=== PATIENT | female | born 1985 | race Caucasian/White ===

== ENCOUNTER 2017-01-22 23:51 | Emergency (ER) | payer MEDICAID | END 2017-01-23 01:00 | disposition left against medical advice (07) | LOC: ER 23:51 | DX: Z53.21 Procedure and treatment not carried out due to patient leaving prior to being seen by health care provider (principal) ==

== ENCOUNTER 2017-02-09 05:41 | Emergency (ER) | payer SELFPAY ==
[2017-02-09 05:55] VITALS: BP 132/68
[2017-02-09] MEDS ORDERED: LORAZEPAM 1 MG TABLET PO ONE (05:59)
--- NOTE | 2017-02-09 06:02 | ER Document Report ---
ED General - General Chief Complaint: Anxiety Stated Complaint: ANXIETY Time Seen by Provider: 02/09/17 05:51 Mode of Arrival: Medic Information source: Patient TRAVEL OUTSIDE OF THE [place] IN LAST 30 DAYS: No - HPI Patient complains to provider of: anxiety Onset: Yesterday Onset/Duration: Gradual Quality of pain: No pain Exacerbated by: Denies Recently seen / treated by doctor: Yes Notes: Patient is a 31-year-old female with history of PTSD and anxiety. Patient does not currently take any anti-anxiety medication. Patient is trying to get herself set up with both primary care along with mental health. Patient presents today with several days of worsening anxiety and panic symptoms. Feels like her "chest is inflamed". No fevers or chills. She does smoke cigarettes. She is not suicidal or homicidal. - Related Data Allergies/Adverse Reactions: No Known Allergies Allergy (Verified 09/20/15 10:51) Past Medical History - General Information source: Patient - Social History Smoking Status: Current Every Day Smoker Family History: None - Past Medical History Cardiac Medical History: Denies: Hx Coronary Artery Disease, Hx Heart Attack, Hx Hypertension Pulmonary Medical History: Denies: Hx Asthma, Hx Bronchitis, Hx COPD, Hx Pneumonia Neurological Medical History: Denies: Hx Cerebrovascular Accident, Hx Seizures GI Medical History: Denies: Hx Hepatitis, Hx Hiatal Hernia, Hx Ulcer Musculoskeltal Medical History: Denies Hx Arthritis Skin Medical History: Denies Hx MRSA Infectious Medical History: Denies: Hx Hepatitis Past Surgical History: Reports: Hx Orthopedic Surgery - Right ankle, Hx Tubal Ligation. Denies: Hx Hysterectomy, Hx Mastectomy, Hx Open Heart Surgery - Immunizations Immunizations up to date: Yes Hx Diphtheria, Pertussis, Tetanus Vaccination: Yes Review of Systems - Review of Systems Neurological/Psychological: Anxiety -: Yes All other systems reviewed and negative Physical Exam - Vital signs Vitals: Temp Pulse Resp BP Pulse Ox 97.3 F 112 H 22 H 132/68 H 99 02/09/17 05:54 02/09/17 05:54 02/09/17 05:54 02/09/17 05:54 02/09/17 05:54 Interpretation: Normal - General General appearance: Appears well, Alert - HEENT Head: Normocephalic, Atraumatic Eyes: Normal Pupils: PERRL - Respiratory Respiratory status: No respiratory distress Chest status: Nontender Breath sounds: Normal Chest palpation: Normal - Cardiovascular Rhythm: Regular Heart sounds: Normal auscultation Murmur: No - Abdominal Inspection: Normal Distension: No distension Bowel sounds: Normal Tenderness: Nontender Organomegaly: No organomegaly - Back Back: Normal, Nontender - Extremities General upper extremity: Normal inspection, Nontender, Normal color, Normal ROM , Normal temperature General lower extremity: Normal inspection, Nontender, Normal color, Normal ROM , Normal temperature, Normal weight bearing. No: Tere's sign - Neurological Neuro grossly intact: Yes Cognition: Normal Orientation: AAOx4 José Miguel Coma Scale Eye Opening: Spontaneous José Miguel Coma Scale Verbal: Oriented Childs Coma Scale Motor: Obeys Commands Childs Coma Scale Total: 15 Speech: Normal Motor strength normal: LUE, RUE, LLE, RLE Sensory: Normal - Psychological Associated symptoms: Anxious. No: Auditory hallucinations, Psychomotor depression, Uncooperative, Visual hallucinations - Skin Skin Temperature: Warm Skin Moisture: Dry Skin Color: Normal Course - Re-evaluation Re-evalutation: 02/09/17 06:01 Patient is being set up at [facility] for her medical care and also reports appointment for mental health care as well. No SI or HI. Will give dose of Ativan for anxiety here along with a prescription for a few pills. Discussed smoking cessation also. No indication for mental health workup at this time. - Vital Signs Vital signs: Temp Pulse Resp BP Pulse Ox 97.3 F 112 H 22 H 132/68 H 99 02/09/17 05:54 02/09/17 05:54 02/09/17 05:54 02/09/17 05:54 02/09/17 05:54 Discharge - Discharge Clinical Impression: Anxiety Condition: Good Disposition: HOME, SELF-CARE Instructions: Anxiety ([facility]) Additional Instructions: Follow-up as scheduled with [facility] and your mental health provider. Return to the emergency department if worse or for any other problems. Prescriptions: Lorazepam [Ativan 1 mg Tablet] 1 mg PO TIDP PRN #12 tab PRN Reason:
== END 2017-02-09 06:10 | disposition home or self-care (01) ==
LOC: ER 05:41
DX: F41.9 Anxiety disorder, unspecified (principal); F17.210 Nicotine dependence, cigarettes, uncomplicated
CPT/HCPCS: 99283

== ENCOUNTER 2018-01-11 01:31 | Emergency (ER) | payer SELFPAY ==
[2018-01-11] MEDS ORDERED: TETRACAINE HCL 0.5% OPH SOLN 4 ML OS ONE (01:44)
[2018-01-11] MEDS ORDERED: PROCHLORPERAZINE EDISYLATE INJ 10 MG/2 ML VIAL IV ONE (01:58)
[2018-01-11] MEDS ORDERED: KETOROLAC TROMETHAMINE INJ/PF 30 MG/1 ML SDV IV ONE (01:58)
[2018-01-11] MEDS ORDERED: NORMAL SALINE 1000 ML 1,000 ML IV ONE (01:58)
--- NOTE | 2018-01-11 01:59 | ER Document Report ---
ED General - General Chief Complaint: Headache Stated Complaint: HEADACHE Time Seen by Provider: 01/11/18 01:43 Notes: Patient is a 32-year-old female with past medical history of migraine headaches who presents with 3 days of a global, throbbing, aching headache. She describes this headache as being relatively gradual in onset and having gotten progressively worse over that time period. She is tried ibuprofen without any relief. Lights, sounds and activity worsen the headache. She has not seen her general doctor regarding these concerns. She notes associated blurring of vision of her right eye as well as right eye pain. She does not wear contacts. No history of trauma to the eye. No history of glaucoma or cataracts. No fever or constitutional symptoms. No altered mental status, weakness or numbness. TRAVEL OUTSIDE OF THE [place] IN LAST 30 DAYS: No - Related Data Allergies/Adverse Reactions: No Known Allergies Allergy (Verified 09/20/15 10:51) Past Medical History - General Information source: Patient - Social History Smoking Status: Never Smoker Frequency of alcohol use: None Drug Abuse: None Lives with: Family Family History: Reviewed & Not Pertinent - Past Medical History Cardiac Medical History: Denies: Hx Coronary Artery Disease, Hx Heart Attack, Hx Hypertension Pulmonary Medical History: Denies: Hx Asthma, Hx Bronchitis, Hx COPD, Hx Pneumonia Neurological Medical History: Denies: Hx Cerebrovascular Accident, Hx Seizures GI Medical History: Denies: Hx Hepatitis, Hx Hiatal Hernia, Hx Ulcer Musculoskeletal Medical History: Denies Hx Arthritis Skin Medical History: Denies Hx MRSA Infectious Medical History: Denies: Hx Hepatitis Past Surgical History: Reports: Hx Orthopedic Surgery - Right ankle, Hx Tubal Ligation. Denies: Hx Hysterectomy, Hx Mastectomy, Hx Open Heart Surgery - Immunizations Immunizations up to date: Yes Hx Diphtheria, Pertussis, Tetanus Vaccination: Yes Review of Systems - Review of Systems Notes: Constitutional: Negative for fever. HENT: Negative for sore throat. Eyes: Positive for right eye discomfort and blurring of vision Cardiovascular: Negative for chest pain. Respiratory: Negative for shortness of breath. Gastrointestinal: Negative for abdominal pain, vomiting or diarrhea. Genitourinary: Negative for dysuria. Musculoskeletal: Negative for back pain. Skin: Negative for rash. Neurological: Positive for headache 10 point ROS negative except as marked above and in HPI. Physical Exam - Vital signs Vitals: Temp Pulse Resp BP Pulse Ox 97.5 F 76 18 115/76 99 01/11/18 01:31 01/11/18 01:31 01/11/18 01:31 01/11/18 01:31 01/11/18 01:31 Interpretation: Normal Notes: PHYSICAL EXAMINATION: GENERAL: Appears moderately uncomfortable but in no acute distress HEAD: Atraumatic, normocephalic. EYES: Pupils equal round and reactive to light, extraocular movements intact, mild scleral injection bilaterally. Ocular pressures are 19 on the right. ENT: nares patent, oropharynx clear without exudates. Moist mucous membranes. NECK: Normal range of motion, supple without lymphadenopathy LUNGS: Breath sounds clear to auscultation bilaterally and equal. No wheezes rales or rhonchi. HEART: Regular rate and rhythm without murmurs ABDOMEN: Soft, nontender, normoactive bowel sounds. No guarding, no rebound. No masses appreciated. EXTREMITIES: Normal range of motion, no pitting or edema. No cyanosis. NEUROLOGICAL: Face symmetric. Tongue protrudes midline. Extraocular motions intact. Pupils are 2 mm and equally reactive. Normal speech, normal gait. 5 out of 5 strength in both the distal and proximal upper and lower extremities bilaterally. Sensation is grossly intact throughout. Finger to nose testing normal. Pronator drift normal. PSYCH: Normal mood, normal affect. SKIN: Warm, Dry, normal turgor, no rashes or lesions noted. Course - Re-evaluation Re-evalutation: 01/11/18 01:58 Patient presents with 3-4 days of a generalized headache more towards the right side that is been getting progressively worse since onset. Appears to be most consistent with tension versus migrainous type headache. Patient was complaining with some associated right eye pain, mild scleral injection although this is bilateral. Ocular pressures 19 on the right. Exam, age, history not consistent with acute angle glaucoma. Headache was not maximal in onset, patient has no focal neurologic deficits, no nuchal rigidity, vital signs within normal limits, no papilledema, and patient is overall well in appearance. Based on clinical history and examination I do not suspect an acute subarachnoid hemorrhage, dural venous sinus thrombosis, acute meningitis, or intercranial mass. Given my low clinical suspicion for any acute life- threatening etiology, I do not feel advanced neuro imaging or laboratory testing is indicated at this time. Will proceed with headache cocktail and reassess. 01/11/18 03:29 Patient has had complete resolution of her headache as well as blurring of vision in her right eye. She feels much better and would like to go home. At this time will discharge with return precautions and follow-up recommendations. Verbal discharge instructions given a the bedside and opportunity for questions given. Medication warnings reviewed. Patient is in agreement with this plan and has verbalized understanding of return precautions and the need for primary care follow-up in the next 24-72 hours. - Vital Signs Vital signs: Temp Pulse Resp BP Pulse Ox 97.5 F 76 18 115/76 99 01/11/18 01:31 01/11/18 01:31 01/11/18 01:31 01/11/18 01:31 01/11/18 01:31 Discharge - Discharge Clinical Impression: Migraine headache Qualifiers: Migraine type: unspecified Status migrainosus presence: with status migrainosus Intractability: not intractable Qualified Code(s): G43.901 - Migraine, unspecified, not intractable, with status migrainosus Condition: Good Disposition: HOME, SELF-CARE Additional Instructions: You were seen today for a migraine headache. Please follow-up with your primary care doctor regarding today's ED visit. Return to emergency department immediately if you develop a headache that gets to its maximum severity within 20 minutes of onset, you pass out, you develop weakness, numbness, changes in your vision, become unable to keep any fluids down for more than 12 hours, or develop a fever greater than 100.4 degrees Fahrenheit. If you develop a similar migraine headache in the future I recommend that you immediately take 600 mg of ibuprofen and 50 mg of Benadryl and go to sleep as quickly as possible. This can often prevent your migraine headache from becoming severe.
[2018-01-11 03:40] VITALS: BP 108/88
== END 2018-01-11 03:25 | disposition home or self-care (01) ==
LOC: ER 01:31
DX: G43.901 Migraine, unspecified, not intractable, with status migrainosus (principal); Z98.51 Tubal ligation status
CPT/HCPCS: 99283; 96361; 96374; 96375; J1885; J0780; J3490

== ENCOUNTER 2019-01-20 15:30 | Emergency (ER) | payer OTHER ==
[2019-01-20] MEDS ORDERED: PROCHLORPERAZINE EDISYLATE INJ 10 MG/2 ML VIAL IV ONE (16:35)
[2019-01-20] MEDS ORDERED: ACETAMINOPHEN 325 MG TABLET PO ONE (16:35)
[2019-01-20] MEDS ORDERED: DIPHENHYDRAMINE HCL 50 MG/ML VIAL IV ONE (16:35)
--- NOTE | 2019-01-20 16:37 | ER Document Report ---
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 Patient complains of headache off and on for the past several weeks that is been persistent over the past week. Patient states that headache pain migrates from the right side now to the left side of her head. Patient also reports she had a nosebleed each day for the past 4 days. Patient does complain of some nausea as well. No fever. Patient states she has a family history of aneurysm and this is what concerned her today. I have greeted and performed a rapid initial assessment of this patient. A comprehensive ED assessment and evaluation of the patient, analysis of test results and completion of the medical decision making process will be conducted by additional ED providers. TRAVEL OUTSIDE OF THE [place] IN LAST 30 DAYS: No - Related Data Allergies/Adverse Reactions: No Known Allergies Allergy (Verified 09/20/15 10:51) Past Medical History - Past Medical History Cardiac Medical History: Denies: Hx Coronary Artery Disease, Hx Heart Attack, Hx Hypertension Pulmonary Medical History: Denies: Hx Asthma, Hx Bronchitis, Hx COPD, Hx Pneumonia Neurological Medical History: Denies: Hx Cerebrovascular Accident, Hx Seizures Renal/ Medical History: Denies: Hx Peritoneal Dialysis GI Medical History: Denies: Hx Hepatitis, Hx Hiatal Hernia, Hx Ulcer Musculoskeltal Medical History: Denies Hx Arthritis Skin Medical History: Denies Hx MRSA Infectious Medical History: Denies: Hx Hepatitis Past Surgical History: Reports: Hx Orthopedic Surgery - Right ankle, Hx Tubal Ligation. Denies: Hx Hysterectomy, Hx Mastectomy, Hx Open Heart Surgery - Immunizations Immunizations up to date: Yes Hx Diphtheria, Pertussis, Tetanus Vaccination: Yes Physical Exam - Vital signs Vitals: Temp Pulse Resp BP Pulse Ox 98.4 F 82 16 132/77 H 100 01/20/19 15:53 01/20/19 15:53 01/20/19 15:53 01/20/19 15:53 01/20/19 15:53 - Neurological Neuro grossly intact: Yes Cognition: Normal José Miguel Coma Scale Eye Opening: Spontaneous José Miguel Coma Scale Verbal: Oriented [place] Coma Scale Motor: Obeys Commands [place] Coma Scale Total: 15 Course - Vital Signs Vital signs: Temp Pulse Resp BP Pulse Ox 98.4 F 82 16 132/77 H 100 01/20/19 15:53 01/20/19 15:53 01/20/19 15:53 01/20/19 15:53 01/20/19 15:53
[2019-01-20 18:18] LABS: ABSOLUTE EOSINOPHILS # (AUTO) 0.1 10^3/uL (0.0-0.6); ABSOLUTE LYMPHOCYTES (AUTO) 1.5 10^3/uL (0.5-4.7); TOTAL CELLS COUNTED % (AUTO) 100 %
[2019-01-20 18:22] LABS: ABSOLUTE MONOCYTES (AUTO) 0.4 10^3/uL (0.1-1.4); ABSOLUTE NEUT (AUTO) 4.2 10^3/uL (1.7-8.2); BASOPHILS % (AUTO) 0.2 % (0-2); EOSINOPHILS % (AUTO) 1.2 % (0-6); HEMATOCRIT 35.8 % (36.0-47.0); HEMOGLOBIN 11.9 g/dL (12.0-15.5); MEAN CORPUSCULAR HEMOGLOBIN 29.1 pg (27.0-33.4); MEAN CORPUSCULAR HGB CONC 33.3 g/dL (32.0-36.0); MEAN CORPUSCULAR VOLUME 88 fl (80-97); MONOCYTES % (AUTO) 6.7 % (3-13); PLATELET COUNT 130 10^3/uL (150-450); RED BLOOD COUNT 4.09 10^6/uL (3.72-5.28); RED CELL DISTRIBUTION WIDTH 15.3 % (11.5-14.0); SEGMENTED NEUTROPHILS % (AUTO) 67.9 % (42-78); WHITE BLOOD COUNT 6.2 10^3/uL (4.0-10.5)
[2019-01-20] MEDS ORDERED: PROCHLORPERAZINE EDISYLATE INJ 10 MG/2 ML VIAL ONE (21:20)
[2019-01-20] MEDS ORDERED: ACETAMINOPHEN 325 MG TABLET ONE (21:21)
[2019-01-20] MEDS ORDERED: DIPHENHYDRAMINE HCL 50 MG/ML VIAL ONE (21:21)
--- NOTE | 2019-01-20 22:24 | ER Document Report ---
ED Headache - General Chief Complaint: Headache Stated Complaint: HEAD PAIN Time Seen by Provider: 01/20/19 16:35 Mode of Arrival: Ambulatory Information source: Patient Notes: 33-year-old female presented to ED with regan from the detention. She states she has had a headache on and off for the past several weeks that is been persistent. She states the migraine radiates down to the left side of her head from the right side. She states she has a history of headaches and usually can take medication or come to the emergency room and get a shot and they clear up. She states she has had nosebleeds off and on for the last 4 days. She states she did have some nausea earlier but no longer has any nausea. She states the headache is gone with the medicine she received by the physician in triage. She states it usually does go away when she gets medication in the emergency room. TRAVEL OUTSIDE OF THE [place] IN LAST 30 DAYS: No - HPI Patient complains to provider of: Headache, "Migraine" Patient reports: Hx chronic headaches Onset: Other - Couple weeks Onset was: Gradual Timing: Gone now Quality of pain: Pressure Severity: None Pain Level: Denies Associated symptoms: Other - States headache is gone now that she got the medication Similar symptoms previously: Yes Recently seen / treated by doctor: No - Related Data Allergies/Adverse Reactions: No Known Allergies Allergy (Verified 09/20/15 10:51) Past Medical History - General Information source: Patient - Social History Smoking Status: Former Smoker Frequency of alcohol use: None Drug Abuse: None Occupation: Presently in detention Lives with: Other - Presently in detention Family History: Reviewed & Not Pertinent Patient has suicidal ideation: No Patient has homicidal ideation: No - Past Medical History Cardiac Medical History: Reports: None Pulmonary Medical History: Reports: None EENT Medical History: Reports: None Neurological Medical History: Reports: Hx Migraine Endocrine Medical History: Reports: None Renal/ Medical History: Reports: None Malignancy Medical History: Reports: None GI Medical History: Reports: None Musculoskeletal Medical History: Reports Hx Musculoskeletal Trauma Skin Medical History: Reports None Psychiatric Medical History: Reports: None Traumatic Medical History: Reports: Hx Fractures - Right ankle, Hx Traumatic Brain Injury Infectious Medical History: Denies: Hx Hepatitis Past Surgical History: Reports: Hx Orthopedic Surgery - Right ankle mass removed from groin, Hx Tubal Ligation - Immunizations Immunizations up to date: Yes Hx Diphtheria, Pertussis, Tetanus Vaccination: Yes Review of Systems - Review of Systems Constitutional: No symptoms reported EENT: No symptoms reported Cardiovascular: No symptoms reported Respiratory: No symptoms reported Gastrointestinal: Nausea Genitourinary: No symptoms reported Female Genitourinary: No symptoms reported Musculoskeletal: No symptoms reported Skin: No symptoms reported Hematologic/Lymphatic: No symptoms reported Neurological/Psychological: Headaches - Headache gone at time of my exam -: Yes All other systems reviewed and negative Physical Exam - Vital signs Vitals: Temp Pulse Resp BP Pulse Ox 98.4 F 82 16 132/77 H 100 01/20/19 15:53 01/20/19 15:53 01/20/19 15:53 01/20/19 15:53 01/20/19 15:53 Interpretation: Normal - General General appearance: Appears well, Alert - HEENT Head: Normocephalic, Atraumatic Eyes: Normal Pupils: PERRL Ears: Normal External canal: Normal Tympanic membrane: Normal Sinus: Normal Nasal: Normal Pharynx: Normal Neck: Normal - Respiratory Respiratory status: No respiratory distress Chest status: Nontender Breath sounds: Normal Chest palpation: Normal - Cardiovascular Rhythm: Regular Heart sounds: Normal auscultation Murmur: No - Abdominal Inspection: Normal Distension: No distension Bowel sounds: Normal Tenderness: Nontender Organomegaly: No organomegaly - Back Back: Normal, Nontender - Extremities General upper extremity: Normal inspection, Nontender, Normal color, Normal ROM, Normal temperature General lower extremity: Normal inspection, Nontender, Normal color, Normal ROM, Normal temperature, Normal weight bearing. 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 Babinski reflex: Normal (flexor plantar) Sensory: Normal Biceps - Reflex grade: 2 = Normal Triceps - Reflex grade: 2 = Normal Brachioradialis - Reflex grade: 2 = Normal Knee - Reflex grade: 2 = Normal Ankle - Reflex grade: 2 = Normal - Psychological Associated symptoms: Normal affect, Normal mood - Skin Skin Temperature: Warm Skin Moisture: Dry Skin Color: Normal Course - Re-evaluation Re-evalutation: 01/21/19 03:11 After performing a Medical Screening Examination, I estimate there is LOW risk for ACUTE GLAUCOMA, TEMPORAL ARTERITIS, MENINGITIS, INCRANIAL HEMORRHAGE, or ISCHEMIC STROKE thus I consider the discharge disposition reasonable. I have reevaluated this patient multiple times and no significant life threatening changes are noted. The patient and I have discussed the diagnosis and risks, and we agree with discharging home with close follow-up with the understanding that symptoms and presentations can change. We also discussed returning to the Emergency Department immediately if new or worsening symptoms occur. We have discussed the symptoms which are most concerning (e.g., changing or worsening symptoms, new numbness or weakness, vomiting, fever) that necessitate immediate return. - Vital Signs Vital signs: Temp Pulse Resp BP Pulse Ox 97.3 F 81 20 109/72 100 01/20/19 21:10 01/20/19 22:28 01/20/19 22:28 01/20/19 22:28 01/20/19 22:28 - Laboratory Result Diagrams: 01/20/19 18:05 Laboratory results interpreted by me: 01/20/19 18:05 Hgb 11.9 L Hct 35.8 L RDW 15.3 H Plt Count 130 L Discharge - Discharge Clinical Impression: Headache Qualifiers: Headache type: unspecified Headache chronicity pattern: acute headache Intractability: not intractable Qualified Code(s): R51 - Headache Condition: Stable Disposition: HOME, SELF-CARE Instructions: Family Physicians / Practices Additional Instructions: HEADACHE: The physician does not feel that the headache you are experiencing has a serious underlying cause. Most headaches are due to emotional stress, with resultant muscle tension (tension headache). Occasionally, headaches are secondary to changes in the blood vessels of the scalp (vascular headache and migraine headache). Sometimes, a headache is the first symptom of another developing illness, such as a viral infection. You have no evidence of stroke, bleeding, meningitis, or other serious cause of your headache. The treatment of headaches varies with the severity and cause of the pain. Not all headaches need pain shots. In fact, there is evidence that using narcotics for headaches may make them worse in the long run. The physician will determine the therapy that's in your best interest. If you develop a fever, if the headache is different from any you've previously experienced, or if the headache progressively worsens, then call your physician at once or go to the emergency room. USE OF DIPHENHYDRAMINE: Diphenhydramine (Benadryl) is an antihistamine and has been recommended to help treat your headache and to prevent side effects of other medications used to treat headaches. The medication can be repeated four times daily. Age Elixir (12.5 mg/tsp) 25 mg pill adult 1-2 tabs Antihistamines may cause drowsiness, especially with the first dose. Do not operate machinery or drive while under the effects of the medication. Do not combine the medication with alcohol, or with any other medication without talking to your doctor. ANTINAUSEA MEDICATION: You have been given a medication to suppress nausea and vomiting. This type of medication can be given as a shot, pill, or suppository. It will usually last for many hours. Pills and shots usually last six to eight hours, suppositories last about 12 hours. For the typical illness, only one or two doses of the medication may be necessary. Mild lightheadedness may occur. This type of medicine can cause drowsiness. Do not drive or operate dangerous machinery while under its influence. Do not mix with alcohol. See your doctor at once if you have muscle spasms or tightness, or uncontrollable motions (particularly of the neck, mouth, or jaw). Persistent v omiting or severe lightheadedness should also be evaluated by the physician. INTRAVENOUS COMPAZINE FOR HEADACHE: You have received therapy for headaches, using intravenous Compazine. This treatment is dramatically successful in relieving the headache in about 50 percent of cases. When it works, it provides a rapid method of eliminating the headache without resorting to narcotics (and the problems associated with them). Most patients still feel fully alert after the Compazine, but others may be slightly drowsy. It's best not to drive or work with machinery for six to eight hours. Do not take alcohol or other medication unless you discuss it with the doctor. If you develop tightness and spasms in your muscles, especially the neck and tongue, you should return. This is a side effect which can be treated. Acetaminophen Acetaminophen may be taken for pain relief or fever control. It's much safer than aspirin, offering a wider range of "safe" dosages. It is safe during . Some brand names are Tylenol, Panadol, Datril, Anacin 3, Tempra, and Liquiprin. Acetaminophen can be repeated every four hours. The following are maximum recommended dosages: WEIGHT Dose Drops Elixir Chewable( 80mg) (LBS.) drprs=droppers tsp=teaspoon 6 40 mg .4 ml (1/2) 6-11 80 mg .8 ml (full) 1/2 tsp 1 tab 12-16 120 mg 1 1/2 drprs 3/4 tsp 1 1/2 tabs 17-23 160 mg 2 drprs 1 tsp 2 tabs 24-30 240 mg 3 drprs 1 1/2 tsp 3 tabs 30-35 320 mg 2 tsp 4 tabs 36-41 360 mg 2 1/4 tsp 4 1/2 tabs 42-47 400 mg 2 1/2 tsp 5 tabs 48-53 480 mg 3 tsp 6 tabs 54-59 520 mg 3 1/4 tsp 6 1/2 tabs 60-64 560 mg 3 1/2 tsp 7 tabs 65-70 600 mg 3 3/4 tsp 7 1/2 tabs 71-76 640 mg 4 tsp 8 tabs 77-82 720 mg 4 1/2 tsp 9 tabs 83-88 800 mg 5 tsp 10 tabs >89 pounds or adults 650 mg to 900 mg Acetaminophen can be repeated every four hours. Maximum daily dose not to exceed 4000 mg. These maximum recommended dosages are slightly higher than the dosages written on the product container, but these dosages are very safe and well below the toxic dosage for acetaminophen. FOLLOW-UP CARE: If you have been referred to a physician for follow-up care, call the physicians office for an appointment as you were instructed or within the next two days. If you experience worsening or a significant change in your symptoms, notify the physician immediately or return to the Emergency Department at any time for re-evaluation. Prescriptions: Diphenhydramine HCl [Benadryl 50 mg Capsule] 1 cap PO Q8HP PRN #14 capsule PRN Reason: Prochlorperazine Maleate [Compazine 10 mg Tablet] 10 mg PO ASDIR PRN #10 tablet PRN Reason:
[2019-01-20 22:29] VITALS: BP 109/72
== END 2019-01-20 22:30 | disposition home or self-care (01) ==
LOC: ER 15:30
DX: R51 Headache (principal); R04.0 Epistaxis; Z87.891 Personal history of nicotine dependence
CPT/HCPCS: 36415; 85025; 86308; 85379; J1200; J0780; 96374; 96375; 99283

== ENCOUNTER 2019-08-07 06:00 | Emergency (ER) | payer SELFPAY ==
[2019-08-07] MEDS ORDERED: MUPIROCIN 2% OINTMENT 22 GM TP ONE (06:31)
--- NOTE | 2019-08-07 06:32 | ER Document Report ---
ED General - General Chief Complaint: Skin Sore(s) Stated Complaint: HEADACHE, NAUSEA, SORES ON FINGERS AND CHEST Time Seen by Provider: 08/07/19 06:09 Notes: 33-year-old woman presents to the emergency department complaint of skin sores involving the index and second finger left hand as well as an area on her upper right chest area. States that the skin lesions have been in place for approximately 1 week. She also complains of a headache for approximately 6 months intermittently with associated nausea and some left arm weakness occasionally. Of interest patient is also homeless and in a poor living situation. TRAVEL OUTSIDE OF THE [place] IN LAST 30 DAYS: No - Related Data Allergies/Adverse Reactions: No Known Allergies Allergy (Verified 09/20/15 10:51) Past Medical History - Social History Smoking Status: Unknown if Ever Smoked Family History: Reviewed & Not Pertinent - Past Medical History Cardiac Medical History: Denies: Hx Coronary Artery Disease, Hx Heart Attack, Hx Hypertension Pulmonary Medical History: Denies: Hx Asthma, Hx Bronchitis, Hx COPD, Hx Pneumonia Neurological Medical History: Reports: Hx Migraine. Denies: Hx Cerebrovascular Accident, Hx Seizures Renal/ Medical History: Denies: Hx Peritoneal Dialysis GI Medical History: Denies: Hx Hepatitis, Hx Hiatal Hernia, Hx Ulcer Musculoskeletal Medical History: Denies Hx Arthritis, Reports Hx Musculoskeletal Trauma Skin Medical History: Denies Hx MRSA Traumatic Medical History: Reports: Hx Fractures - Right ankle, Hx Traumatic Brain Injury Infectious Medical History: Denies: Hx Hepatitis Past Surgical History: Reports: Hx Orthopedic Surgery - Right ankle mass removed from groin, Hx Tubal Ligation. Denies: Hx Hysterectomy, Hx Mastectomy, Hx Open Heart Surgery - Immunizations Immunizations up to date: Yes Hx Diphtheria, Pertussis, Tetanus Vaccination: Yes Review of Systems - Review of Systems Notes: Constitutional: Negative for fever. HENT: Negative for sore throat. Eyes: Negative for visual changes. Cardiovascular: Negative for chest pain. Respiratory: Negative for shortness of breath. Gastrointestinal: Negative for abdominal pain, vomiting or diarrhea. Genitourinary: Negative for dysuria. Musculoskeletal: Negative for back pain. Skin: + Rash Neurological: + headaches 10 point ROS negative except as marked above and in HPI. Physical Exam - Vital signs Vitals: Temp Pulse Resp BP Pulse Ox 97.9 F 85 18 132/69 H 98 08/07/19 06:04 08/07/19 06:04 08/07/19 06:04 08/07/19 06:04 08/07/19 06:04 - Notes Notes: PHYSICAL EXAMINATION: Physical Exam: General: Well-nourished well-developed in no acute distress HEENT: NC/AT, pupils equal round and reactive to light, MM moist,nares clear, oropharynx clear, airway patent Neck: supple, no adenopathy, no masses. Good range of motion Lungs: clear, no wheezing, no rales no rhonchi CVS: Regular rate and rhythm no murmur gallop or rub Abdomen: Soft, active, nontender, no masses, no hepatosplenomegaly Ext: No edema, clubbing or cyanosis. Neuro: Alert and responsive, moving all 4 extremities on command, cranial nerves intact, no focal findings Skin: Multiple skin lesions with open epidermis and surrounding erythema involving index and middle finger left hand, 1 area on the anterior chest wall right of the sternum, no drainage, no purulent discharge. PSYCH: Normal mood, normal affect. Course - Vital Signs Vital signs: Temp Pulse Resp BP Pulse Ox 97.9 F 85 18 132/69 H 98 08/07/19 06:09 08/07/19 06:04 08/07/19 06:04 08/07/19 06:04 08/07/19 06:04 - Diagnostic Test Radiology reviewed: Image reviewed, Reports reviewed - CT head: No acute intracranial findings. Discharge - Discharge Clinical Impression: Skin infection, Homelessness Headache Qualifiers: Headache type: unspecified Headache chronicity pattern: unspecified pattern Intractability: not intractable Qualified Code(s): R51 - Headache Condition: Good Disposition: HOME, SELF-CARE Instructions: Headache ([facility]) Additional Instructions: Use the topical skin antibiotic as directed, apply twice daily to the lesions. Use Tylenol for headache 650 mg (2 tablets) every 4-6 hours as needed for pain. If your symptoms are worsening or if you have other concerns you may return to the emergency department. HOME CARE INSTRUCTIONS & INFORMATION: Thank you for choosing us for your medical needs. We hope you're satisfied with the care you received. After you leave, you must properly care for your problem and, at the same time, observe its progress. Any condition can change. Some illnesses can change rapidly over hours or days. If your condition worsens, return to the Emergency Department or see your physician promptly. ABOUT YOUR X-RAYS AND EKG'S: If you had an EKG or X-rays taken, they have been read by the Emergency Physician. The X-rays and EKG's will also be read by a Radiologist or Labor Economics Professor within 24 hours. If discrepancies are noted, you will be notified by telephone. Please be certain the ED has a correct telephone number & address where you can be reached. Also, realize that some fractures or abnormalities do not show up on initial X-rays. If your symptoms continue, see your physician. ABOUT YOUR LABORATORY TEST: If you had laboratory tests, the results have been reviewed by the Emergency Physician. Some test results (for example cultures) may not be available for several days. You will be contacted if any test result shows you need additional treatment. Please be certain the ED has a correct telephone number and address where you can be reached. ABOUT YOUR MEDICATIONS: You will receive instructions on how to take your medicine on the prescription label you receive. Additional information may be provided by the Pharmacy. If you have questions afterwards, call the ED for clarification or further instructions. Some prescribed medications may cause drowsiness. Do not perform tasks such as driving a car or operating machinery without consulting your Pharmacist. If you feel you need a refill of pain medication, your condition will need re-evaluation. Please do not call for a refill of any medication. ABOUT YOUR SIGNATURE: Signature of this document acknowledges to followin. Understanding that you received emergency treatment and that you may be released before al medical problems are known or treated. Please be certain the ED has a correct phone number & address where you can be reached. 2. Acknowledgement that you will arrange for follow-up care as recommended. 3. Authorization for the Emergency Physician to provide information to your follow-up Physician in order to maximize your care. AT ANY TIME, IF YOUR SYMPTOMS CHANGE SIGNIFICANTLY OR WORSEN OR YOU DEVELOP NEW SYMPTOMS, RETURN TO THE EMERGENCY DEPARTMENT IMMEDIATELY FOR RE-EVALUATION. OUR GOAL IS TO PROVIDE EXCELLENT MEDICAL CARE! WE HOPE THAT WE HAVE MET YOUR EXPECTATIONS DURING YOUR EMERGENCY DEPARTMENT VISIT AND THAT YOU FEEL YOU HAVE RECEIVED EXCELLENT CARE!
--- NOTE | 2019-08-07 07:10 | RADIOLOGY REPORT (SQ) ---
EXAM DESCRIPTION: CT HEAD WITHOUT IV CONTRAST COMPLETED DATE/TME: 08/07/2019 06:32 CLINICAL HISTORY: 33 years Female, Headache COMPARISON: None. TECHNIQUE: No contrast. Coronal and sagittal reformat. This exam was performed according to our departmental dose-optimization program, which includes automated exposure control, adjustment of the mA and/or kV according to patient size and/or use of iterative reconstruction technique. FINDINGS: No hemorrhage or infarct. No mass, mass effect, or midline shift. Brain and extra-axial structures appear intact. IMPRESSION: Normal CT of the head.
[2019-08-07 10:03] VITALS: BP 103/71
== END 2019-08-07 10:04 | disposition home or self-care (01) ==
LOC: ER 06:00
DX: R51 Headache (principal); L08.9 Local infection of the skin and subcutaneous tissue, unspecified; R11.0 Nausea; R53.1 Weakness; Z59.0 Homelessness; Z86.69 Personal history of other diseases of the nervous system and sense organs
CPT/HCPCS: 99284; 70450; J3490

== ENCOUNTER 2019-10-04 16:52 | Emergency (ER) | payer OTHER ==
[2019-10-04 18:14] LABS: ABSOLUTE EOSINOPHILS # (AUTO) 0.1 10^3/uL (0.0-0.6); ABSOLUTE LYMPHOCYTES (AUTO) 1.5 10^3/uL (0.5-4.7); ABSOLUTE MONOCYTES (AUTO) 0.5 10^3/uL (0.1-1.4); ABSOLUTE NEUT (AUTO) 2.9 10^3/uL (1.7-8.2); BASOPHILS % (AUTO) 0.3 % (0-2); EOSINOPHILS % (AUTO) 1.5 % (0-6); HEMATOCRIT 34.4 % (36.0-47.0); HEMOGLOBIN 11.5 g/dL (12.0-15.5); LYMPHOCYTES % (AUTO) 30.3 % (13-45); MEAN CORPUSCULAR HEMOGLOBIN 28.8 pg (27.0-33.4); MEAN CORPUSCULAR HGB CONC 33.4 g/dL (32.0-36.0); MEAN CORPUSCULAR VOLUME 86 fl (80-97); MONOCYTES % (AUTO) 9.4 % (3-13); PLATELET COUNT 146 10^3/uL (150-450); RED BLOOD COUNT 3.99 10^6/uL (3.72-5.28); SEGMENTED NEUTROPHILS % (AUTO) 58.5 % (42-78); TOTAL CELLS COUNTED % (AUTO) 100 %; WHITE BLOOD COUNT 4.9 10^3/uL (4.0-10.5)
[2019-10-04 18:30] LABS: ALBUMIN 4.1 g/dL (3.5-5.0); ALKALINE PHOSPHATASE 41 U/L (38-126); ANION GAP 6 (5-19); ASPARTATE AMINO TRANSFERASE 21 U/L (14-36); BILIRUBIN,TOTAL 0.7 mg/dL (0.2-1.3); BLOOD UREA NITROGEN 22 mg/dL (7-20); CALCIUM 9.3 mg/dL (8.4-10.2); CARBON DIOXIDE 29 mmol/L (22-30); CHLORIDE 100 mmol/L (98-107); GLUCOSE 100 mg/dL (75-110); POTASSIUM 3.9 mmol/L (3.6-5.0); TOTAL PROTEIN 6.9 g/dL (6.3-8.2)
--- NOTE | 2019-10-04 18:59 | ER Document Report ---
ED General - General Chief Complaint: Low Blood Pressure Stated Complaint: POSSIBLE LOW BLOOD PRESSURE Time Seen by Provider: 10/04/19 18:57 Mode of Arrival: Ambulatory Information source: Patient, Law Enforcement Notes: returned goods receiving clerk note 10/04/19 17:51 - ED Nursing Note by JACEY HART Num: [id number] : 1985 Patient Age: 33 PATIENT ARRIVES WITH C/O OF POSSIBLE LOW BLOOD PRESSURE, BUT BP IS STABLE. PT STATES SHE HAS A HEADACHE, FEELS NAUSIATED, AND IS DIZZY. PT STATES THIS HAS BEEN GOING ON FOR A COUPLE MONTHS. PT IS FROM [facility] WITH PO AT BEDSIDE my notes 33-year-old female arrives with officer Claudia from [facility]. Patient has a history of migraine headaches documented here at the hospital for the last [address] Remy in July of this year and he ordered a CT of head which was negative. Patient reports she has right temporal headache with right frontal headache with mild photophobia and there is a migraine history in her family. Patient at that time complained of a lesion on her hand and for this reason I ordered an RPR. Patient reports she is getting out of snf tonight and is her birthday tomorrow. TRAVEL OUTSIDE OF THE [place] IN LAST 30 DAYS: No - HPI Onset: This morning Onset/Duration: Sudden Quality of pain: Achy Severity: Mild Pain Level: 1 Associated symptoms: Nausea, Other - dizzy with low bp Exacerbated by: Movement Relieved by: Denies Similar symptoms previously: No Recently seen / treated by doctor: No - Related Data Allergies/Adverse Reactions: No Known Allergies Allergy (Verified 09/20/15 10:51) Past Medical History - General Information source: Patient, Law Enforcement - Social History Smoking Status: Former Smoker Cigarette use (# per day): No Chew tobacco use (# tins/day): No Smoking Education Provided: No Frequency of alcohol use: Rare Drug Abuse: Heroin Family History: Reviewed & Not Pertinent Patient has homicidal ideation: No - Past Medical History Cardiac Medical History: Denies: Hx Coronary Artery Disease, Hx Heart Attack, Hx Hypertension Pulmonary Medical History: Denies: Hx Asthma, Hx Bronchitis, Hx COPD, Hx Pneumonia Neurological Medical History: Reports: Hx Migraine. Denies: Hx Cerebrovascular Accident, Hx Seizures Renal/ Medical History: Denies: Hx Peritoneal Dialysis GI Medical History: Denies: Hx Hepatitis, Hx Hiatal Hernia, Hx Ulcer Musculoskeletal Medical History: Denies Hx Arthritis, Reports Hx Musculoskeletal Trauma Skin Medical History: Denies Hx MRSA Psychiatric Medical History: Reports: Hx Depression Traumatic Medical History: Reports: Hx Fractures - Right ankle, Hx Traumatic Brain Injury Infectious Medical History: Denies: Hx Hepatitis Past Surgical History: Reports: Hx Orthopedic Surgery - Right ankle mass removed from groin, Hx Tubal Ligation. Denies: Hx Hysterectomy, Hx Mastectomy, Hx Open Heart Surgery - Immunizations Immunizations up to date: Yes Hx Diphtheria, Pertussis, Tetanus Vaccination: Yes Review of Systems - Review of Systems Constitutional: See HPI, Weakness EENT: No symptoms reported Cardiovascular: No symptoms reported Respiratory: No symptoms reported Gastrointestinal: No symptoms reported Genitourinary: No symptoms reported Female Genitourinary: No symptoms reported Musculoskeletal: No symptoms reported Skin: No symptoms reported Hematologic/Lymphatic: No symptoms reported Neurological/Psychological: No symptoms reported Physical Exam - Vital signs Vitals: Temp 98.6 F 10/04/19 16:53 Course - Vital Signs Vital signs: Temp Pulse Resp BP Pulse Ox 98.6 F 86 21 H 110/63 100 10/04/19 16:57 10/04/19 19:44 10/04/19 18:02 10/04/19 19:44 10/04/19 18:02 - Laboratory Result Diagrams: 10/04/19 18:02 10/04/19 18:02 Laboratory results interpreted by me: 10/04/19 10/04/19 18:02 18:02 Hgb 11.5 L Hct 34.4 L Plt Count 146 L Sodium 134.6 L BUN 22 H Critical Care Note - Critical Care Note Total time excluding time spent on procedures (mins): 90 Comments: I advised patient of her test results and of her pending test for syphilis which she will have to get from her personal doctor or call to receive results Discharge - Discharge Clinical Impression: Hypotension Migraine headache Qualifiers: Migraine type: unspecified Status migrainosus presence: without status migrainosus Intractability: not intractable Qualified Code(s): G43.909 - Migraine, unspecified, not intractable, without status migrainosus Condition: Good Disposition: HOME, SELF-CARE Additional Instructions: Follow-up with personal doctor when you were released from snf; take Motrin or Tylenol for headache pains as needed. Encourage fluids sleep for least 5 to 6 hours after receiving headache medicine. And do not drive or use dangerous machinery for at least 1 day. Encourage fluids like Pedialyte or Gatorade
[2019-10-04] MEDS ORDERED: PROCHLORPERAZINE EDISYLATE INJ 10 MG/2 ML VIAL IV ONE (20:03)
[2019-10-04] MEDS ORDERED: KETOROLAC TROMETHAMINE INJ/PF 30 MG/1 ML SDV IV ONE (20:05)
[2019-10-04] MEDS ORDERED: NORMAL SALINE 1000 ML 1,000 ML IV ONE (20:21)
[2019-10-04 21:23] VITALS: BP 113/90
== END 2019-10-04 21:31 | disposition home or self-care (01) ==
LOC: ER 16:52
DX: I95.9 Hypotension, unspecified (principal); G43.909 Migraine, unspecified, not intractable, without status migrainosus; R11.0 Nausea; R42 Dizziness and giddiness; R53.1 Weakness; H53.149 Visual discomfort, unspecified; F11.10 Opioid abuse, uncomplicated; Z82.0 Family history of epilepsy and other diseases of the nervous system; Z87.891 Personal history of nicotine dependence
CPT/HCPCS: 99291; 99292; 96361; 96374; 96375; 36415; 85025; 86592; 80053; J1885; J0780; J7030